=== PATIENT | female | born 1945 | race Caucasian/White ===

== ENCOUNTER → 2018-12-06 | Emergency (ER) | payer OTHER ==
[~2018-12-06] VITALS: Ht 157.5 cm; Wt 63.5 kg
[~2018-12-06] MED LIST: ATORVASTATIN CA20 MG; FYAVOLV 0.5 MG1 EACH; LEVOTHYROXINE75 MCG; LOSARTAN POTASS25 MG; NORVASC2.5 M1
== END | disposition home or self-care (01) ==
LOC: ER 18:33
DX: J40 Bronchitis, not specified as acute or chronic (principal); R06.02 Shortness of breath